=== PATIENT | male | born 1960 | race Two or more races ===

== ENCOUNTER 2024-09-23 11:57 | Outpatient (AMB) | payer OTHER, SELFPAY ==
--- NOTE | 2024-09-23 11:56 | PD.ORTHTELE ---
Med/Allergies Allergies & Medications Allergies No Known Allergies Allergy (Verified 09/23/24 11:56) Medication Reconciliation atorvastatin 20 mg tablet 20 mg PO QDAY 09/13/24 [History Confirmed 09/23/24] cholecalciferol (vitamin D3) 100 mcg (4,000 unit) tablet 100 mcg PO QDAY 09/13/24 [History Confirmed 09/23/24] lisinopril 20 mg tablet 20 mg PO QDAY 09/13/24 [History Confirmed 09/23/24] naproxen 500 mg tablet 500 mg PO BID 09/13/24 [History Confirmed 09/23/24] Subjective Visit Visit for: follow up visit, knee and x-rays Immunization / Flu Flu Vaccine in the Last 12 Months: No Flu Vaccine Exclusion Criteria: No Exclusion Criteria History of Present Illness Chief complaint: TELEMED VISIT F/U XRAYS Date of injury / onset of symptoms: 5 YEARS Patient is a pleasant 64-year-old male with bilateral knee pain worse on the right. The pains been affecting his quality life and happiness for over 5 years.He has tried naproxen with minimal relief. He has had over 3 injections. He has not had formal physical therapy. He has tried multiple anti-inflammatories including naproxen. He also has a history of a meniscectomy on the right. The pain is affecting his quality of life and happiness significantly. He also notices significant deformity of his knees and has a limp. Personal History Occupation: RESEARCH ASSISTANT MEMBER Hobbies: WALKING Red flag PMH: none Pain Pain level (0-10): 8 Pain duration: ALL DAY Pain location: inside (medial), outside (lateral), anterior and posterior Pain quality: sharp, dull, aching and burning Pain timing: increases with activity and stairs Associated signs & symptoms: numbness and stiffness Ambulatory data Ambulatory device: none Treatments Number of previous injections: 2 Improvement with previous injections: No Number of Physical Therapy sessions: 0 Improvement with PT: No Improvement with NSAIDS: n/a Review of Systems Review of Systems: All systems negative unless otherwise noted in HPI. Assessment and Plan Problem List (1) Degenerative arthritis of knee, bilateral: Status: Acute Plan: Patient is a pleasant 64-year-old male with bilateral knee pain and bilateral knee arthritis. We discussed nonoperative and operative options. He is actually failed conservative treatment occluding over 3 injections in each knee. He has tried anti-inflammatories. The pain is affecting his quality life and happiness. I would like to confirm that he has significant qcnp-na-iilh arthritis on x-ray that is weightbearing. Will see him back for a phone visit to discuss the results of this. We are sending him to outpatient physical therapy but he is failed conservative treatment options already. We will discuss total knee replacement should he fail. We already started the process and discussed total knee replacement with him. Hopefully he does well with therapy Office Procedures GNS Level of Care Nursing/Assessment Patient Status: Established Patient Nursing Assessment/Reassesment: Medication Reconciliation, Update PMH in EMR and Vital Signs Coordination of Care: Complex Care and Chronic Disease 1-5, Education Complex Pt/Fam, Consent,records obtained, informed consent, Results/Orders obtained and Staff clarify orders Special Needs: Language special needs Established Patient Charge Established Patient Point Assignment: 95 Telehealth Telemed Phone/Video with patient at home & Dr,PA,PAYABLE REPRESENTATIVE: Yes
== END 2024-09-23 12:04 | disposition home or self-care (01) ==
LOC: HODSRG 11:57
PROVIDERS: Supervising Provider Orthopaedic Surgery Adult Reconstructive Orthopaedic Surgery; Visit Provider Orthopaedic Surgery Adult Reconstructive Orthopaedic Surgery
DX: M17.0 Bilateral primary osteoarthritis of knee (principal); M25.562 Pain in left knee; M25.561 Pain in right knee
CPT/HCPCS: 99212; G0463

== ENCOUNTER 2025-01-24 10:52 | Outpatient (AMB) | payer OTHER, SELFPAY ==
[2025-01-24 11:08] VITALS: BP 127/80; PULSE 62; RESP 18; TEMP 36.7; O2SAT 96; BMI 30.9
--- NOTE | 2025-01-24 11:08 | ORTHONT_ITS ---
Vital signs 01/24/25 11:08 Height 1.63 m Height Method Stated Weight 82.355 kg Weight Measurement Method Standing Scale BMI 30.9 BP 127/80 Blood Pressure Source Automatic Cuff Blood Pressure Location Left Upper Arm Position Sitting Respiration 18 Pulse 62 Pulse Source Monitor Temp 98.1 F Temp Source Temporal Artery Scan Pulse Oximetry (%) 96 Oxygen Delivery Method Room Air Med/Allergies Allergies & Medications Allergies No Known Allergies Allergy (Verified 01/24/25 11:09) Medication Reconciliation atorvastatin 20 mg tablet 20 mg PO QDAY 09/13/24 [History Confirmed 01/24/25] cholecalciferol (vitamin D3) 100 mcg (4,000 unit) tablet 100 mcg PO QDAY 09/13/24 [History Confirmed 01/24/25] lisinopril 20 mg tablet 20 mg PO QDAY 09/13/24 [History Confirmed 01/24/25] naproxen 500 mg tablet 500 mg PO BID 09/13/24 [History Confirmed 01/24/25] Exam Exam Patient is in no acute distress and is cooperative with the examination today. Breathing is nonlabored. In no respiratory distress. Bilateral extremities were evaluated and demonstrates sensation intact to light touch. Palpable pedal pulses are present. No significant edema is present. Bilateral hips were examined. The patient has no pain with log roll of the hips. Internal rotation to 30 degrees and external rotation to 30 degrees is painless. Negative FADIR. The left knee was examined. The left knee is in [varus] alignment. Range of motion from [0-115] degrees. Knee is stable to varus and valgus as well as AP translation with <5mm. Patient has a [negative] McMurrays. There is [no] pain with patellofemoral compression and [no] crepitus noted. The knee is [tender] to palpation [medially]. The right knee was also examined. The right knee is in [varus] alignment. Range of motion from [0-120] degrees. Knee is stable to varus and valgus as well as AP translation with <5mm. Patient has a [negative] McMurrays. There is [no] pain with patellofemoral compression and [no] crepitus noted. The knee is [tender] to palpation [medially]. [facility] from [facility] were reviewed. These are nonweightbearing films. This demonstrates bilateral joint space narrowing medially and varus deformity. Assessment and Plan Problem List (1) Degenerative arthritis of knee, bilateral: Status: Acute Plan: Patient is a pleasant 64-year-old male with bilateral knee pain and bilateral knee arthritis. We discussed nonoperative and operative options. He is actually failed conservative treatment occluding over 3 injections in each knee. He has tried anti-inflammatories. The pain is affecting his quality life and happiness. He has significant arthritis on x-ray on the right worse than left The nature and purpose of the total knee replacement, alternative method(s) of treatment, the material risks involved, and the possibility of complications were fully explained to the patient. The patient does NOT have any of the following contraindications to TKA: - Active infection of the knee joint, OR - Active systemic bacteremia, OR - Active skin infection or open wound at surgical site, OR - Neuropathic arthritis, OR - Severe, rapidly progressive neurological disease, OR - Severe medical condition that makes risks of surgery outweigh the potential benefit The patient was told the most common risks and complications associated with a total knee replacement include, but are not limited to: blood clots in the leg, fatal pulmonary embolism, dislocation of the prosthesis, intraoperative and postoperative fractures of the femur or tibia, infection, failure of the prosthesis or grafting materials, complications from anesthesia, reactions to blood transfusions, postoperative leg length inequality, instability of the knee replacement, nerve damage or injury, vascular injury, delayed wound healing, infection, other injury or even . In addition, there are risks associated with anesthesia given during this operation. Also, the patient was told that after undergoing a total knee replacement there may still be persistent pain or disability. The patient was informed that the success of this operation in part depends upon the mechanical devices which are going to be implanted and that these devices can fail or malfunction, and may need to be repaired or replaced and there are no guarantees as to the longevity of this device or its parts and that it or its parts could fail prematurely. The patient was also notified that during the course of surgery, there may be a need to use bone graft from donors, and that any bone graft used will be carefully screened for communicable diseases, including AIDS, hepatitis, Troy-Creutzfeldt, or other diseases, but despite the screening procedures, there is a small chance that they could contract one of these diseases. Finally, the patient was asked to follow completely and fully with all advice and recommended treatments, and that recovery and ultimate outcome are affected by their compliance with recommended treatment. We discussed the risks, benefits and treatment alternatives, and the patient is interested in proceeding with surgery. We will try to set this up as expeditiously as possible. Office Procedures GNS Level of Care Nursing/Assessment Patient Status: Established Patient Nursing Assessment/Reassesment: Medication Reconciliation, Update PMH in EMR and Vital Signs Coordination of Care: Complex Care and Chronic Disease 1-5, Education Complex Pt/Fam, Consent,records obtained, informed consent, Lab and Imaging orders, Results/Orders obtained and Staff clarify orders Established Patient Charge Established Patient Point Assignment: 110 Established Patient Point Charge: EP Level 3 (80-115) MA Intake Visit Data Collection New Patient or Established: Established Patient (seen at [facility] within 3 years) Reason for Visit:: PRE OP R TKA Correspondence Representative Required: No PCP or OBGYN visit in last 3 months: Yes Hx Now: No Do You Feel Safe at Home: Yes Authorities Contacted: N/A Questionairres Past Medical History Past Medical History Have you ever been diagnosed with any of the following: Cardiology Problems Hypertension: Yes Respiratory Problems Smoking: No Smoking Cessation Counseling: No Smoking Exposure: No Subjective Visit Visit for: follow up visit and knee Immunization / Flu Flu Vaccine in the Last 12 Months: No Flu Vaccine Exclusion Criteria: No Exclusion Criteria History of Present Illness Chief complaint: Right knee pain Abhishek is a pleasant 64-year-old male with right knee pain and right knee arthritis of significant severity. He is set up for surgery. He has minimal pain. Pain Pain level (0-10): 8 Pain duration: ALL DAY Pain location: inside (medial), outside (lateral) and anterior Pain quality: sharp, dull and aching Pain timing: night and increases with activity Associated signs & symptoms: numbness, weakness and stiffness Ambulatory data Ambulatory device: none Treatments Improvement with previous injections: No Improvement with PT: No Improvement with NSAIDS: no Review of Systems Review of Systems: All systems negative unless otherwise noted in HPI.
== END 2025-01-24 11:17 | disposition home or self-care (01) ==
LOC: HODSRG 10:52
PROVIDERS: Supervising Provider Orthopaedic Surgery Adult Reconstructive Orthopaedic Surgery; Visit Provider Orthopaedic Surgery Adult Reconstructive Orthopaedic Surgery
DX: M17.0 Bilateral primary osteoarthritis of knee (principal); M25.562 Pain in left knee; M25.561 Pain in right knee; I10 Essential (primary) hypertension
CPT/HCPCS: 99213; G0463

== ENCOUNTER → 2025-01-24 | Outpatient (CLI) | payer OTHER, SELFPAY ==
--- NOTE | 2025-01-24 | XR_ITS ---
Examination: CT right lower extremity, without contrast. 2-D sagittal reconstructions. 2-D coronal reconstructions. 3-D reconstructions. Date and time of exam:January 24, 2025 1243 hrs. Indications: Diagnosis primary right knee osteoarthritis right knee pain 10 years CTDI: vol (mGy):9.37 DLP: (mGycm):714 Technique: Multiple 1.25 mm axial sections of the right lower extremity have been obtained. 2-D sagittal and coronal reconstructions have been obtained. 3-D reconstructions have been obtained. Low dose protocols were performed. One or more of the following dose reduction techniques were used; automated exposure control, adjustment of the mA and/or KV according to patient size, use of iterative reconstruction technique. Findings: Moderate to advanced right hip osteoarthritis No right hip fracture or dislocation Severe narrowing medial joint space right knee with osteophyte formation Significant osteoarthritis patellofemoral joint No new fracture Impression: Severe narrowing medial joint space right knee
== END | disposition home or self-care (01) ==
PROVIDERS: PCP Family Medicine; Referring Provider Orthopaedic Surgery Adult Reconstructive Orthopaedic Surgery; Visit Provider Orthopaedic Surgery Adult Reconstructive Orthopaedic Surgery
DX: M25.861 Other specified joint disorders, right knee (principal)
CPT/HCPCS: 73700

== ENCOUNTER 2025-03-01 08:30 | Day surgery (SDC) | payer OTHER, SELFPAY ==
--- NOTE | 2025-02-24 09:25 | EKG_ITS ---
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
[2025-02-24 09:31] VITALS: BMI 32.1
[2025-02-24 11:20] LABS: Basophils % (Auto) 0 % (0-2.5); Eosinophils # (Auto) 0.1 Thou/mm3 (0.0-0.5); Eosinophils % (Auto) 1 % (0-10); Hematocrit 44.3 % (41.0-53.0); Immature Granulocytes % (Auto) 0 % (0-0); Immature Granulocytes Auto 0.02 Thou/mm3 (0.00-0.00); Lymphocytes # (Auto) 2.3 Thou/mm3 (1.0-4.8); Lymphocytes % (Auto) 31 % (10-50); Mean Corpuscular HGB Conc 33.9 g/dl (31.0-37.0); Mean Corpuscular Hemoglobin 31.2 pg (25.0-35.0); Mean Corpuscular Volume 92 fL (80-100); Monocytes # (Auto) 0.6 Thou/mm3 (0.0-0.8); Monocytes % (Auto) 8 % (0-12); Neutrophils # (Auto) 4.5 Thou/mm3 (1.8-7.7); Neutrophils % (Auto) 59 % (37-80); Nucleated Red Blood Cell % 0 /100 WBC (0); Platelet Count 206 Thou/mm3 (140-440); RDW Standard Deviation 40.9 fL (35.1-43.9); Red Blood Count 4.81 Miln/mm3 (4.50-5.90); White Blood Count 7.6 Thou/mm3 (3.8-10.6)
[2025-02-24 11:27] LABS: INR 1.1 (0.9-1.3); Partial Thromboplastin Time 24.3 Seconds (22.0-36.0); Prothrombin Time 11.5 Seconds (9.0-12.2)
[2025-02-24 11:57] LABS: Alanine Aminotransferase 39 U/L (10-49); Albumin, Serum 4.4 gm/dL (3.4-4.8); Albumin/Globulin Ratio 1.5 (1.2-2.2); Alkaline Phosphatase 82 U/L (46-116); Anion Gap 8 (7-16); Aspartate Amino Transferase 31 U/L (0-34); BUN/Creatinine Ratio 23 Ratio (12-20); Bilirubin,Total 0.9 mg/dL (0.3-1.2); Blood Urea Nitrogen 18 mg/dL (9-23); Carbon Dioxide 26.6 mMol/L (20.0-31.0); Chloride 104 mMol/L (98-107); Creatinine (Component) 0.8 mg/dL (0.6-1.3); Estimated Creatinine Clearance 92.8 mL/min (>60); Globulin 2.9 gm/dL (2.3-3.5); Glucose 107 mg/dL (74-106); Osmolality,Calculated 279 (275-295); Potassium 4.1 mMol/L (3.4-5.1); Sodium 139 mMol/L (136-145); Total Protein 7.3 gm/dL (5.7-8.2); eGFR > 60 See Note
[2025-03-01] VITALS (18 sets, daily range): BP systolic 100–132; BP diastolic 60–83; PULSE 65–118; RESP 14–25; TEMP 36.3–37.1; O2SAT 94–100; BMI 32.1
[2025-03-01] MEDS: RINGERS LACTATED 1000 ML 1,000 ML 20 ML IV (10:05)
[2025-03-01] MEDS: ACETAMINOPHEN 325 MG TABLET 650 MG PO (10:06)
[2025-03-01] MEDS: PREGABALIN 75 MG CAPSULE PO (10:07)
[2025-03-01] MEDS: MELOXICAM 7.5 MG TABLET PO (10:07)
--- NOTE | 2025-03-01 14:42 | ESOP_ITS ---
Date of Procedure 03/01/25 Pre Op Diagnosis right knee osteoarthritis Post Op Diagnosis right knee osteoarthritis Procedure right total knee replacement eran Findings full thickness cartilage loss and ostoephytes Procedure Description Indication: The patient is a 64 year old who has a long history of right knee pain. X-rays show degenerative arthritis involving the knee. Over the past several years the patient has had increasing pain, progressive limitation in function. He has failed conservative measures including activity modification, physical therapy, injections, anti-inflammatories, and assistive devices. After a lengthy discussion of the risks and benefits, the patient presents now for total knee replacement. The nature and purpose of the total knee replacement, alternative method(s) of treatment, the material risks involved, and the possibility of complications were fully explained to the patient. The patient was told the most common risks and complications associated with a total knee replacement include, but are not limited to blood clots in the leg, fatal pulmonary embolism, dislocation of the prosthesis, intraoperative and postoperative fractures of the femur or tibia, infection, failure of the prosthesis or grafting materials, complications from anesthesia, reactions to blood transfusions, postoperative leg length inequality, instability of the knee replacement, nerve damage or injury, vascular injury, delayed wound healing, infections, other injury or even . In addition, there are risks associated with anesthesia given during this operation, temporary or permanent numbness on the skin lateral to the incision can be a complication unique to total knee surgery, and kneeling can be painful after knee replacement surgery. Also, the patient was told that after undergoing a total knee replacement there may still be pain or disability. We discussed with the patient that we will be using a robot-assisted technology. We discussed that there is a possibility of converting to manual instrumentation. The patient was informed that the success of this operation in part depends upon the mechanical devices which are going to be implanted and that these devices can fail or malfunction, and may need to be repaired or replaced and there are no guarantees as to the longevity of this device or its part and that it or its parts could fail prematurely. Finally, the patient was asked to follow completely and fully with all advice and recommended treatments, and that recovery and ultimate outcome are affected by their compliance with recommended treatment. Surgical technique: Patient was marked and consented in the pre-operative area. The patient was brought to the operating room and placed on the operating table in a supine position. Prior to positioning, a timeout procedure was performed between the surgeon, the anesthesiologist, and the nursing staff where the patient and the operative side were identified and confirmed. After adequate general anesthetic was obtained, the right lower extremity was prepped and draped in the usual sterile fashion. A weight based dose of Cefazolin were administered within 1 hour prior to incision. The robot was preregistered and calirated before the incision. The extremity was exsanguinated with an esmarch badge and tourniquet inflated to 250mmHg. A midline incision was made. A median parapatellar arthrotomy was made. The patella was subluxed laterally. A medial release was performed to expose the medial tibia. His femoral and tibial pins were placed through an intra incisional manner for both cases. Every effort was made to ensure that the distalmost aspect of the pin was hung in the second cortex. The arrays were then tightened several times to ensure that it was fixed for the remainder of the case. Both femoral and tibial checkpoints were then placed. We then went through the registration process of the bone. We then assessed the knee deformity and attempted to correct it. We also used the robot to aid in judging laxity in both extension and flexion. Final based on laxity and alignment we changed the preoperative assessment to obtain proper proper implant positioning and to correct deformity. Attention was then placed to the tibia. We made a tibial cut using the robot ensuring that both the MCL and the patella tendon were protected with retractors. We then went to the femur and made the posterior cut followed by the anterior cut and the anterior chamfer. The bone was then removed and we made a distal femur cut and a posterior chamfer cut. We verified all cuts. A trial reduction was performed with a size 2 femoral component and a size 3 keeled tibial component. The patella tracked centrally, and no lateral retinacular release was necessary. The trial implants were removed. The arrays, pins, and checkpoints were all removed. We performed a verification that all pins were removed. The cut bone surfaces were lavaged. A size 2 right femoral component, a size 2 keeled tibial component were impacted into position. The knee was felt to be well balanced in the sagittal and coronal plane. The final 2x10 mm cruciate- substituting articular insert was impacted into the tibial tray. The knee was brought out to full extension, flexed up to 120 degrees. It was stable to varus and valgus stress and appropriately balanced in flexion and extension. The wounds were copiously irrigated following deflation of tourniquet. The medial retinaculum was reapproximated with #1 vicryl and quill. The subcutaneous tissues were closed with 0 and 2-0 interrupted Vicryl. The skin was closed with 3-0 Monofilament V loc suture. A sterile dressing was applied. The patient was transferred to a bed and brought to recovery in stable condition. The patient tolerated the procedure well. There were no intraoperative complications. Sponge and needle counts were correct times 2. As the attending surgeon, I attest I was present and performed the entire operation. Grafts/Implants Size 2 CR Femur Size 3 Tibia 10mm poly CS Anesthesia GETA Implants aneta Pathology / specimen None Pathology comment: none Estimated Blood Loss 150 Condition Stable Disposition same day Surgeon Augusto Schmidt MD Surgical Staff Operation Date: 03/01/25 12:45 Case Staff ELECTRONIC DATA INTERCHANGE SPECIALIST: Maurilio Victoria RNsupervisor fabrication department: Ryanne Magana
--- NOTE | 2025-03-01 14:49 | XR_ITS ---
Examination: Right knee 2 views Technique one AP lateral right knee 2 views Exam date and time: March 01, 2025 at 1539 hours INDICATIONS: Postop knee replacement FINDINGS: Total right knee arthroplasty. Satisfactory alignment. Moderate osteopenia IMPRESSION: Total right knee arthroplasty with satisfactory alignment
--- NOTE | 2025-03-01 15:03 | SUR.PHASEI ---
pt received from OR in recovery bay 1. pt obtunded, breathing unlabored on 8l oxymask, oral airway in place. v/s stable. pt dressing to right lower extremity cdi. report received from Maurilio KATZ and Iris GIL.
--- NOTE | 2025-03-01 15:34 | SUR.PHASEI ---
pt able to tolerate oral fluids without difficulty swallowing or nausea/vomiting.
--- NOTE | 2025-03-01 16:35 | SUR.PHASEII ---
1634 Report received from Antonio GIL
--- NOTE | 2025-03-01 16:35 | SUR.PHASEII ---
report given to Shayy Herrera RN. pt awake and alert, breahting unlabored on 2l nc. v/s stable. pt dressing to right lower extremity cdi.
--- NOTE | 2025-03-01 16:46 | SUR.PHASEII ---
1764 Post spinal anesthesia anesthesia complete patient has dermatome sensation at S2 perineum, will contact physical therapist Jose to assess patient
--- NOTE | 2025-03-01 17:28 | SUR.PHASEII ---
patient ambulated with physical therapy to the restroom, unable to void, patient is going to eat dinner, and drink fluids
--- NOTE | 2025-03-01 17:59 | SUR.PHASEII ---
1759 Patient signed limited proficiency statement for his daughter to chilling hood operator Persian to him, discharge instructions given to patient, his and daughter, with his daughter interpreting to patient and his , all receptive of instructions, patient daughter signed discharge instructions.
--- NOTE | 2025-03-01 18:40 | SUR.PHASEII ---
patient walked to restroom, unable to void, will continue to montior patient and encourage fluids, patient shared his genital feel numb still
--- NOTE | 2025-03-01 19:28 | SUR.PHASEII ---
192 patient voided 200ml in urinal, will proceed with discharge
--- NOTE | 2025-03-01 19:41 | SUR.PHASEII ---
1940 Patient meets discharge criteria from recovery, awake and alert, breathing unlabored, vital signs stable, denies pain, dressing intact; no bleeding noted, patient ate dinner and drinking fluids, denies nausea, patient voided in urinal, assisted with dressing into his clothing by his , patient given all his belongings prior to discharge, transported via wheelchair and left in a private vechile.
== END 2025-03-01 19:41 | disposition home or self-care (01) ==
PROVIDERS: Anesthesiology; PCP Family Medicine; Referring Provider Orthopaedic Surgery Adult Reconstructive Orthopaedic Surgery; Visit Provider Orthopaedic Surgery Adult Reconstructive Orthopaedic Surgery
PROC: (CPT 27447; principal; 2025-03-01 12:45)
DX: M17.11 Unilateral primary osteoarthritis, right knee (principal); I10 Essential (primary) hypertension; E11.9 Type 2 diabetes mellitus without complications; E78.5 Hyperlipidemia, unspecified
CPT/HCPCS: 27447; 20985; 36415; 73560; 80053; 85025; 85610; 85730; 93005; 97162; A4217; C1713; C1776; J2250; J2371; J2704; J3010; J3490; J7030; J7120; J7999; A4648; A4649; A9270

== ENCOUNTER 2025-03-16 11:11 | Outpatient (AMB) | payer OTHER, SELFPAY ==
--- NOTE | 2025-03-16 11:43 | PD.ORTHCLVIS ---
Vital signs 03/16/25 11:44 Weight 80.796 kg Weight Measurement Method Standing Scale BP 128/77 Blood Pressure Source Automatic Cuff Blood Pressure Location Left Upper Arm Position Sitting Respiration 17 Pulse 96 Pulse Source Monitor Temp 98.4 F Temp Source Temporal Artery Scan Pulse Oximetry (%) 97 Oxygen Delivery Method Room Air Med/Allergies Allergies & Medications Allergies Penicillins Allergy (Mild, Verified 03/16/25 11:46) Diarrhea Medication Reconciliation atorvastatin 20 mg tablet 20 mg PO QDAY 09/13/24 [History Confirmed 03/16/25] lisinopril 20 mg tablet 20 mg PO QDAY 09/13/24 [History Confirmed 03/16/25] naproxen 500 mg tablet 500 mg PO BID 09/13/24 [History Confirmed 03/16/25] dulaglutide 1.5 mg/0.5 mL subcutaneous pen injector (Trulicity) 1.5 mg subcut QWEEK 02/24/25 [History Confirmed 03/16/25] metformin 500 mg tablet 500 mg PO BID 02/24/25 [History Confirmed 03/16/25] aspirin 81 mg tablet,delayed release 81 mg PO BID #60 tabs 03/01/25 [Rx Confirmed 03/16/25] doxycycline hyclate 100 mg tablet 100 mg PO BID #14 tabs 03/01/25 [Rx Confirmed 03/16/25] gabapentin 300 mg capsule 300 mg PO .qhs #30 caps 03/01/25 [Rx Confirmed 03/16/25] sennosides 8.6 mg-docusate sodium 50 mg tablet (Senna-S) 1 tab-cap PO QDAY #30 tabs 03/01/25 [Rx Confirmed 03/16/25] acetaminophen 500 mg tablet (Acetaminophen Extra Strength) 1,000 mg (2 x 500 mg) PO Q6H PRN pain #90 tabs 03/16/25 [Rx Confirmed 03/16/25] oxycodone 5 mg tablet 5 mg PO Q6H PRN pain #28 tabs 03/16/25 [Rx Confirmed 03/16/25] Exam Exam Patient is in no acute distress and is cooperative with the examination today. Breathing is nonlabored. In no respiratory distress. Bilateral extremities were evaluated and demonstrates sensation intact to light touch. Palpable pedal pulses are present. No significant edema is present. Bilateral hips were examined. The patient has no pain with log roll of the hips. Internal rotation to 30 degrees and external rotation to 30 degrees is painless. Negative FADIR. The left knee was examined. The left knee is in [varus] alignment. Range of motion from [0-115] degrees. Knee is stable to varus and valgus as well as AP translation with <5mm. Patient has a [negative] McMurrays. There is [no] pain with patellofemoral compression and [no] crepitus noted. The knee is [tender] to palpation [medially]. The right knee was also examined. The right knee is in [varus] alignment. Range of motion from [0-120] degrees. Knee is stable to varus and valgus as well as AP translation with <5mm. Patient has a [negative] McMurrays. There is [no] pain with patellofemoral compression and [no] crepitus noted. The knee is [tender] to palpation [medially]. Right knee incision is clean dry intact Assessment and Plan Problem List (1) Degenerative arthritis of knee, bilateral: Status: Acute Plan: Patient is a pleasant 64-year-old male with bilateral knee pain and bilateral knee arthritis. We discussed nonoperative and operative options. He is doing well with his right total knee replacement. We will see him back in 4 weeks with new x-ray Office Procedures GNS Level of Care Nursing/Assessment Patient Status: Established Patient Nursing Assessment/Reassesment: Medication Reconciliation, Update PMH in EMR and Vital Signs Coordination of Care: Complex Care and Chronic Disease 1-5, Consent,records obtained, informed consent, Education Simp Pt/Fam, Results/Orders obtained and Staff clarify orders Special Needs: Language special needs (AFGH[place] ) Established Patient Charge Established Patient Point Assignment: 90 Established Patient Point Charge: EP Level 3 (80-115) MA Intake Visit Data Collection New Patient or Established: Established Patient (seen at [facility] [place] within 3 years) Reason for Visit:: 2 WK POST OP RT TKA Seen by Clinical Staff ONLY (RN/MA): No Bundle Breaker Required: Yes PCP or OBGYN visit in last 3 months: Yes Hx Now: No Do You Feel Safe at Home: Yes Authorities Contacted: N/A Questionairres Past Medical History Past Medical History Have you ever been diagnosed with any of the following: Neurological Problems Seizures: No Nolasco's Palsy: Yes (Left) Cardiology Problems Hypercholesterolemia: Yes Congestive Heart Failure: No Hypertension: Yes Respiratory Problems Chronic Obstructive Pulmonary Disease (COPD): No Smoking: No Smoking Cessation Counseling: No Smoking Exposure: No Stomache/Intestinal Problems Hepatitis: No Obesity: Yes Genital/Urinary Problems Renal Disease: No Musculoskeletal Problems Arthritis: Yes Endocrine Problems Diabetes Mellitus Type 1: No Diabetes Mellitus Type 2: Yes Psychologic Problems Depression: Yes (not taking meds) Other Problems Hospitalization: No Shingles: No Blood Transfusions: No Blood Transfusion Reaction: No Anesthesia Reactions: No Cancer: No Subjective Visit Visit for: follow up visit and post op #1 (2 WK POST OP RT TKA) Immunization / Flu Flu Vaccine in the Last 12 Months: Yes Flu Vaccine Exclusion Criteria: Already Received History of Present Illness Chief complaint: Right knee replacement Patient is 2 weeks status post right total knee replacement and is doing well. He is ambulating well Personal History Red flag PMH: none Pain Pain level (0-10): 3 Pain duration: 2 WEEKS Pain location: anterior and posterior Pain quality: shocking and tingling Pain timing: night Associated signs & symptoms: numbness Ambulatory data Ambulatory device: walker Walking distance (minutes): 10 Treatments Number of previous injections: 2 Improvement with previous injections: No Number of Physical Therapy sessions: 3 Improvement with PT: Yes Improvement with NSAIDS: n/a Review of Systems Review of Systems: All systems negative unless otherwise noted in HPI.
[2025-03-16 11:44] VITALS: BP 128/77; PULSE 96; RESP 17; TEMP 36.9; O2SAT 97
== END 2025-03-16 11:58 | disposition home or self-care (01) ==
LOC: HODSRG 11:11
PROVIDERS: Supervising Provider Orthopaedic Surgery Adult Reconstructive Orthopaedic Surgery; Visit Provider Orthopaedic Surgery Adult Reconstructive Orthopaedic Surgery
DX: M17.0 Bilateral primary osteoarthritis of knee (principal); M25.562 Pain in left knee; M25.561 Pain in right knee; Z96.651 Presence of right artificial knee joint; I10 Essential (primary) hypertension; E78.00 Pure hypercholesterolemia, unspecified; E11.9 Type 2 diabetes mellitus without complications
CPT/HCPCS: 99213; G0463

== ENCOUNTER 2025-04-13 10:47 | Outpatient (AMB) | payer OTHER, SELFPAY ==
--- NOTE | 2025-04-13 11:01 | ORTHONT_ITS ---
Vital signs 04/13/25 11:02 Height 1.63 m Height Method Stated Weight 83.716 kg Weight Measurement Method Standing Scale BMI 31.5 BP 131/79 H Blood Pressure Source Automatic Cuff Blood Pressure Location Right Upper Arm Position Sitting Respiration 18 Pulse 75 Pulse Source Monitor Temp 98.0 F Temp Source Temporal Artery Scan Pulse Oximetry (%) 97 Oxygen Delivery Method Room Air Med/Allergies Allergies & Medications Allergies Penicillins Allergy (Mild, Verified 04/13/25 11:03) Diarrhea Medication Reconciliation atorvastatin 20 mg tablet 20 mg PO QDAY 09/13/24 [History Confirmed 04/13/25] lisinopril 20 mg tablet 20 mg PO QDAY 09/13/24 [History Confirmed 04/13/25] naproxen 500 mg tablet 500 mg PO BID 09/13/24 [History Confirmed 04/13/25] dulaglutide 1.5 mg/0.5 mL subcutaneous pen injector (Trulicity) 1.5 mg subcut QWEEK 02/24/25 [History Confirmed 04/13/25] metformin 500 mg tablet 500 mg PO BID 02/24/25 [History Confirmed 04/13/25] aspirin 81 mg tablet,delayed release 81 mg PO BID #60 tabs 03/01/25 [Rx Confirmed 04/13/25] doxycycline hyclate 100 mg tablet 100 mg PO BID #14 tabs 03/01/25 [Rx Confirmed 04/13/25] gabapentin 300 mg capsule 300 mg PO .qhs #30 caps 03/01/25 [Rx Confirmed 04/13/25] sennosides 8.6 mg-docusate sodium 50 mg tablet (Senna-S) 1 tab-cap PO QDAY #30 tabs 03/01/25 [Rx Confirmed 04/13/25] acetaminophen 500 mg tablet (Acetaminophen Extra Strength) 1,000 mg (2 x 500 mg) PO Q6H PRN pain #90 tabs 03/16/25 [Rx Confirmed 04/13/25] oxycodone 5 mg tablet 5 mg PO Q6H PRN pain #28 tabs 03/16/25 [Rx Confirmed 04/13/25] Exam Exam Patient is in no acute distress and is cooperative with the examination today. Breathing is nonlabored. In no respiratory distress. Bilateral extremities were evaluated and demonstrates sensation intact to light touch. Palpable pedal pulses are present. No significant edema is present. Bilateral hips were examined. The patient has no pain with log roll of the hips. Internal rotation to 30 degrees and external rotation to 30 degrees is painless. Negative FADIR. The left knee was examined. The left knee is in [varus] alignment. Range of motion from [0-115] degrees. Knee is stable to varus and valgus as well as AP translation with <5mm. Patient has a [negative] McMurrays. There is [no] pain with patellofemoral compression and [no] crepitus noted. The knee is [tender] to palpation [medially]. The right knee was also examined. The right knee is in [varus] alignment. Range of motion from [0-120] degrees. Knee is stable to varus and valgus as well as AP translation with <5mm. Patient has a [negative] McMurrays. There is [no] pain with patellofemoral compression and [no] crepitus noted. The knee is [tender] to palpation [medially]. Right knee incision is clean dry intact. Range of motion 0 to 100 degrees Assessment and Plan Problem List (1) Degenerative arthritis of knee, bilateral: Status: Acute Plan: Patient is a pleasant 64-year-old male with bilateral knee pain and bilateral knee arthritis. We discussed nonoperative and operative options. He is doing well with his right total knee replacement. Patient is doing well. [facility] We will see him in approximately 2 to 3 months for routine follow-up Office Procedures GNS Level of Care Nursing/Assessment Patient Status: Established Patient Nursing Assessment/Reassesment: Medication Reconciliation, Update PMH in EMR and Vital Signs Coordination of Care: Complex Care and Chronic Disease 1-5, Education Complex Pt/Fam, Consent,records obtained, informed consent, Education Simp Pt/Fam, Results/Orders obtained and Staff clarify orders Established Patient Charge Established Patient Point Assignment: 110 Established Patient Point Charge: EP Level 3 (80-115) MA Intake Visit Data Collection New Patient or Established: Established Patient (seen at [facility] within 3 years) Reason for Visit:: 4 WEEK POST OP Seen by Clinical Staff ONLY (RN/MA): No Verbal consent obtained for Telemed visit?: No Staff Counsel Required: Yes PCP or OBGYN visit in last 3 months: Yes Hx Now: No Do You Feel Safe at Home: Yes Authorities Contacted: N/A Questionairres Past Medical History Past Medical History Have you ever been diagnosed with any of the following: Neurological Problems Seizures: No Nolasco's Palsy: Yes (Left) Cardiology Problems Hypercholesterolemia: Yes Congestive Heart Failure: No Hypertension: Yes Respiratory Problems Chronic Obstructive Pulmonary Disease (COPD): No Smoking: No Smoking Cessation Counseling: No Smoking Exposure: No Stomache/Intestinal Problems Hepatitis: No Obesity: Yes Genital/Urinary Problems Renal Disease: No Musculoskeletal Problems Arthritis: Yes Endocrine Problems Diabetes Mellitus Type 1: No Diabetes Mellitus Type 2: Yes Psychologic Problems Depression: Yes (not taking meds) Other Problems Hospitalization: No Shingles: No Blood Transfusions: No Blood Transfusion Reaction: No Anesthesia Reactions: No Cancer: No Subjective Visit Visit for: follow up visit and knee Immunization / Flu Flu Vaccine in the Last 12 Months: Yes Flu Vaccine Exclusion Criteria: Already Received History of Present Illness Chief complaint: 4 WEEK POST OP Date of 1st surgery (if applicable): 02/24/25 Patient is 6 weeks status post right total knee replacement and is doing well. He is ambulating well Personal History Occupation: DISABLED Red flag PMH: BMI BMI Counceling provided: Yes Pain Pain level (0-10): 3 Pain duration: COMES AND GOES Pain location: anterior Pain quality: dull and aching Pain timing: night Associated signs & symptoms: numbness Ambulatory data Ambulatory device: cane Walking distance (minutes): 10 Treatments Number of previous injections: 2 Improvement with previous injections: No Number of Physical Therapy sessions: 3 Improvement with PT: Yes Improvement with NSAIDS: yes Review of Systems Review of Systems: All systems negative unless otherwise noted in HPI.
[2025-04-13 11:02] VITALS: BP 131/79; PULSE 75; RESP 18; TEMP 36.7; O2SAT 97; BMI 31.5
== END 2025-04-13 11:14 | disposition home or self-care (01) ==
LOC: HODSRG 10:47
PROVIDERS: PCP Family Medicine; Referring Provider Family Medicine; Supervising Provider Orthopaedic Surgery Adult Reconstructive Orthopaedic Surgery; Visit Provider Orthopaedic Surgery Adult Reconstructive Orthopaedic Surgery
DX: M17.0 Bilateral primary osteoarthritis of knee (principal); M25.562 Pain in left knee; M25.561 Pain in right knee; Z96.651 Presence of right artificial knee joint; I10 Essential (primary) hypertension; E78.00 Pure hypercholesterolemia, unspecified; E11.9 Type 2 diabetes mellitus without complications
CPT/HCPCS: 99213; G0463

== ENCOUNTER 2025-07-21 13:02 | Outpatient (AMB) | payer OTHER, SELFPAY ==
--- NOTE | 2025-07-21 13:14 | PD.ORTHCLVIS ---
Vital signs 07/21/25 13:15 Height 1.63 m Height Method Stated Weight 86.239 kg Weight Measurement Method Standing Scale BMI 32.4 BP 153/84 H Blood Pressure Source Automatic Cuff Blood Pressure Location Left Upper Arm Position Sitting Respiration 19 Pulse 88 Pulse Source Monitor Temp 97.6 F Temp Source Temporal Artery Scan Pulse Oximetry (%) 98 Oxygen Delivery Method Room Air Med/Allergies Allergies & Medications Allergies Penicillins Allergy (Mild, Verified 07/21/25 13:16) Diarrhea Exam Exam Patient is in no acute distress and is cooperative with the examination today. Breathing is nonlabored. In no respiratory distress. Bilateral extremities were evaluated and demonstrates sensation intact to light touch. Palpable pedal pulses are present. No significant edema is present. Bilateral hips were examined. The patient has no pain with log roll of the hips. Internal rotation to 30 degrees and external rotation to 30 degrees is painless. Negative FADIR. Right knee incisions clean dry intact. Range of motion 0 to 105 degrees Assessment and Plan Problem List (1) Degenerative arthritis of knee, bilateral: Status: Acute Plan: Patient is a pleasant 64-year-old male with bilateral knee pain and bilateral knee arthritis. He is status post right total knee replacement and is doing well. His left knee also hurts him. He reports the pain is significant better than surgery. We will see him back in approximately 3 months Office Procedures GNS Level of Care Nursing/Assessment Patient Status: Established Patient Nursing Assessment/Reassesment: Medication Reconciliation, Update PMH in EMR and Vital Signs Coordination of Care: Complex Care and Chronic Disease 1-5, Education Complex Pt/Fam, Consent,records obtained, informed consent, Results/Orders obtained and Staff clarify orders Established Patient Charge Established Patient Point Assignment: 95 Established Patient Point Charge: EP Level 3 (80-115) MA Intake Visit Data Collection New Patient or Established: Established Patient (seen at [facility] within 3 years) Reason for Visit:: 4 MTH TKA FOLLOW UP Seen by Clinical Staff ONLY (RN/MA): No Verbal consent obtained for Telemed visit?: No Needle Loom Operator Required: Yes PCP or OBGYN visit in last 3 months: Yes Hx Now: No Do You Feel Safe at Home: Yes Authorities Contacted: N/A Questionairres Past Medical History Past Medical History Have you ever been diagnosed with any of the following: Neurological Problems Seizures: No Nolasco's Palsy: Yes (Left) Cardiology Problems Hypercholesterolemia: Yes Congestive Heart Failure: No Hypertension: Yes Respiratory Problems Chronic Obstructive Pulmonary Disease (COPD): No Smoking: No Smoking Cessation Counseling: No Smoking Exposure: No Stomache/Intestinal Problems Hepatitis: No Obesity: Yes Genital/Urinary Problems Renal Disease: No Musculoskeletal Problems Arthritis: Yes Endocrine Problems Diabetes Mellitus Type 1: No Diabetes Mellitus Type 2: Yes Psychologic Problems Depression: Yes (not taking meds) Other Problems Hospitalization: No Shingles: No Blood Transfusions: No Blood Transfusion Reaction: No Anesthesia Reactions: No Cancer: No Subjective Visit Visit for: follow up visit and knee Immunization / Flu Flu Vaccine in the Last 12 Months: Yes Flu Vaccine Exclusion Criteria: Already Received History of Present Illness Chief complaint: 4 WEEK POST OP Date of 1st surgery (if applicable): 02/24/25 Patient is 16weeks status post right total knee replacement and is doing well. He is ambulating well Personal History Occupation: DISABLED Red flag PMH: BMI BMI Counceling provided: Yes Pain Pain level (0-10): 3 Pain duration: COMES AND GOES Pain location: anterior Pain quality: tingling Pain timing: increases with activity Associated signs & symptoms: numbness Ambulatory data Ambulatory device: cane Walking distance (minutes): 10 Treatments Number of previous injections: 2 Improvement with previous injections: No Number of Physical Therapy sessions: 3 Improvement with PT: Yes Improvement with NSAIDS: yes Review of Systems Review of Systems: All systems negative unless otherwise noted in HPI.
[2025-07-21 13:15] VITALS: BP 153/84; PULSE 88; RESP 19; TEMP 36.4; O2SAT 98; BMI 32.4
--- NOTE | 2025-07-21 13:33 | XR_ITS ---
Examination: Bilateral knees 2 views Right lateral knee left lateral knee 2 views Right axial knee left axial knee 2 views TECHNIQUE: Bilateral AP knees standing single view, bilateral PA knees standing single view flexion Standing right lateral knee left lateral knee 2 views Right axial knee left axial knee 2 views total 6 views Date and time: July 21, 2025 1359 hours INDICATIONS: Postop knee replacement March 01, 2025. FINDINGS: Mild osteopenia. Total right knee arthroplasty. Satisfactory alignment No dislocation of the right patella No fracture Advanced narrowing medial joint space left knee Moderate osteoarthritis left patellofemoral joint No fracture No patellar dislocation IMPRESSION: Total right knee arthroplasty with satisfactory alignment Advanced narrowing medial joint space left knee
== END 2025-07-21 13:42 | disposition home or self-care (01) ==
LOC: HODSRG 13:02
PROVIDERS: Supervising Provider Orthopaedic Surgery Adult Reconstructive Orthopaedic Surgery; Visit Provider Orthopaedic Surgery Adult Reconstructive Orthopaedic Surgery
DX: M17.0 Bilateral primary osteoarthritis of knee (principal); M25.562 Pain in left knee; M25.561 Pain in right knee; Z96.651 Presence of right artificial knee joint; I10 Essential (primary) hypertension; E78.00 Pure hypercholesterolemia, unspecified; E11.9 Type 2 diabetes mellitus without complications; E66.9 Obesity, unspecified; Z71.3 Dietary counseling and surveillance; Z68.32 Body mass index [BMI] 32.0-32.9, adult
CPT/HCPCS: 73564; 99213; G0463

== ENCOUNTER 2025-10-05 10:09 | Outpatient (AMB) | payer OTHER, SELFPAY ==
--- NOTE | 2025-10-05 10:38 | PD.ORTHCLVIS ---
Vital signs 10/05/25 10:39 Height 1.63 m Height Method Stated Weight 84.085 kg Weight Measurement Method Standing Scale BMI 31.6 BP 143/77 H Blood Pressure Source Automatic Cuff Blood Pressure Location Left Upper Arm Position Sitting Respiration 19 Pulse 69 Pulse Source Monitor Temp 97.8 F Temp Source Temporal Artery Scan Pulse Oximetry (%) 98 Oxygen Delivery Method Room Air Med/Allergies Allergies & Medications Allergies Penicillins Allergy (Mild, Verified 10/05/25 10:40) Diarrhea Medication Reconciliation atorvastatin 20 mg tablet 20 mg PO QDAY 09/13/24 [History Confirmed 10/05/25] lisinopril 20 mg tablet 20 mg PO QDAY 09/13/24 [History Confirmed 10/05/25] naproxen 500 mg tablet 500 mg PO BID 09/13/24 [History Confirmed 10/05/25] dulaglutide 1.5 mg/0.5 mL subcutaneous pen injector (Trulicity) 1.5 mg subcut QWEEK 02/24/25 [History Confirmed 10/05/25] metformin 500 mg tablet 500 mg PO BID 02/24/25 [History Confirmed 10/05/25] aspirin 81 mg tablet,delayed release 81 mg PO BID #60 tabs 03/01/25 [Rx Confirmed 10/05/25] doxycycline hyclate 100 mg tablet 100 mg PO BID #14 tabs 03/01/25 [Rx Confirmed 10/05/25] gabapentin 300 mg capsule 300 mg PO .qhs #30 caps 03/01/25 [Rx Confirmed 10/05/25] sennosides 8.6 mg-docusate sodium 50 mg tablet (Senna-S) 1 tab-cap PO QDAY #30 tabs 03/01/25 [Rx Confirmed 10/05/25] acetaminophen 500 mg tablet (Acetaminophen Extra Strength) 1,000 mg (2 x 500 mg) PO Q6H PRN pain #90 tabs 03/16/25 [Rx Confirmed 10/05/25] oxycodone 5 mg tablet 5 mg PO Q6H PRN pain #28 tabs 03/16/25 [Rx Confirmed 10/05/25] Exam Exam Patient is in no acute distress and is cooperative with the examination today. Breathing is nonlabored. In no respiratory distress. Bilateral extremities were evaluated and demonstrates sensation intact to light touch. Palpable pedal pulses are present. No significant edema is present. Bilateral hips were examined. The patient has no pain with log roll of the hips. Internal rotation to 30 degrees and external rotation to 30 degrees is painless. Negative FADIR. Right knee incisions clean dry intact. Range of motion 0 to 105 degrees Xrays demonstrate a cementless total knee replacement in good alignment and position Assessment and Plan Problem List (1) Degenerative arthritis of knee, bilateral: Status: Acute Plan: Patient is a pleasant 64-year-old male with bilateral knee pain and bilateral knee arthritis. He is status post right total knee replacement and is doing well. His left knee also hurts him occasionally. The right knee feels great and he would like to see him in approximately a year Office Procedures GNS Level of Care Nursing/Assessment Patient Status: Established Patient Nursing Assessment/Reassesment: Medication Reconciliation, Update PMH in EMR and Vital Signs Coordination of Care: Complex Care and Chronic Disease 1-5, Education Complex Pt/Fam, Consent,records obtained, informed consent, Results/Orders obtained and Staff clarify orders Established Patient Charge Established Patient Point Assignment: 95 Established Patient Point Charge: EP Level 3 (80-115) MA Intake Visit Data Collection New Patient or Established: Established Patient (seen at [facility] within 3 years) Reason for Visit:: 2MTH FU Seen by Clinical Staff ONLY (RN/MA): No Verbal consent obtained for Telemed visit?: No Residential Program Manager Required: Yes PCP or OBGYN visit in last 3 months: Yes Hx Now: No Do You Feel Safe at Home: Yes Authorities Contacted: N/A Questionairres Past Medical History Past Medical History Have you ever been diagnosed with any of the following: Neurological Problems Seizures: No Nolasco's Palsy: Yes (Left) Cardiology Problems Hypercholesterolemia: Yes Congestive Heart Failure: No Hypertension: Yes Respiratory Problems Chronic Obstructive Pulmonary Disease (COPD): No Smoking: No Smoking Cessation Counseling: No Smoking Exposure: No Stomache/Intestinal Problems Hepatitis: No Obesity: Yes Genital/Urinary Problems Renal Disease: No Musculoskeletal Problems Arthritis: Yes Endocrine Problems Diabetes Mellitus Type 1: No Diabetes Mellitus Type 2: Yes Psychologic Problems Depression: Yes (not taking meds) Other Problems Hospitalization: No Shingles: No Blood Transfusions: No Blood Transfusion Reaction: No Anesthesia Reactions: No Cancer: No Subjective Visit Visit for: follow up visit and knee Immunization / Flu Flu Vaccine in the Last 12 Months: Yes Flu Vaccine Exclusion Criteria: Already Received History of Present Illness Chief complaint: 4 WEEK POST OP Date of 1st surgery (if applicable): 02/24/25 Patient is 7 months status post right total knee replacement and is doing well. He is ambulating well and has no pain Personal History Occupation: DISABLED Red flag PMH: BMI BMI Counceling provided: Yes Pain Pain level (0-10): 3 Pain duration: COMES AND GOES Pain location: anterior Pain quality: tingling Pain timing: increases with activity Associated signs & symptoms: numbness Ambulatory data Ambulatory device: cane Walking distance (minutes): 10 Treatments Number of previous injections: 2 Improvement with previous injections: No Number of Physical Therapy sessions: 3 Improvement with PT: Yes Improvement with NSAIDS: yes Review of Systems Review of Systems: All systems negative unless otherwise noted in HPI.
[2025-10-05 10:39] VITALS: BP 143/77; PULSE 69; RESP 19; TEMP 36.6; O2SAT 98; BMI 31.6
== END 2025-10-05 10:53 | disposition home or self-care (01) ==
LOC: HODSRG 10:09
PROVIDERS: Supervising Provider Orthopaedic Surgery Adult Reconstructive Orthopaedic Surgery; Visit Provider Orthopaedic Surgery Adult Reconstructive Orthopaedic Surgery
DX: Z47.1 Aftercare following joint replacement surgery (principal); Z96.651 Presence of right artificial knee joint; M25.562 Pain in left knee; M25.561 Pain in right knee; M17.12 Unilateral primary osteoarthritis, left knee; I10 Essential (primary) hypertension; E13.9 Other specified diabetes mellitus without complications; Z79.84 Long term (current) use of oral hypoglycemic drugs; E66.9 Obesity, unspecified; Z68.31 Body mass index [BMI] 31.0-31.9, adult
CPT/HCPCS: 99213; G0463